=== PATIENT | female | born 1945 | race Caucasian/White ===

== ENCOUNTER 2019-03-18 15:05 | Emergency (ER) | payer MEDICARE, OTHER, SELFPAY ==
[2019-03-18 15:13] VITALS: BP 147/77; PULSE 65; RESP 18; TEMP 36.3; O2SAT 97
--- NOTE | 2019-03-18 15:34 | ECG_ITS ---
Measurements Intervals [place] Rate: 58 P: 23 TN: 164 QRS: -9 QRSD: 86 T: 16 QT: 444 QTc: 438 Interpretive Statements SINUS BRADYCARDIA BORDERLINE ECG Electronically Signed On 03-19-2019 7:54:42 [employer] by Gordon Fox D.O.
--- NOTE | 2019-03-18 15:37 | ED.ABDPAIN ---
HPI - Abdominal Pain General Chief Complaint: Abdominal Pain Stated Complaint: L SIDE PAIN/NAUSEA/PASSED OUT Time Seen by Provider: 03/18/19 15:38 Source: patient, family and RN notes reviewed Mode of arrival: ambulatory Limitations: no limitations History of Present Illness HPI narrative: 73-year-old female presents with concern for left lower abdominal pain, episode of syncope. She reports she was riding in the car approximately 15 minutes ago when her noticed that she momentarily passed out for approximately 30 seconds. Reports prior to passing out she felt nauseous, like she was going to vomit. Reports a history of diverticulitis in the left lower quadrant. Reports after arriving to [facility], she had a soft bowel movement and her abdominal pain went away. MD elicited complaint: abdominal pain Related Data Home Medications Medication Instructions Recorded Confirmed Allergy Medication 03/18/19 Calcium 600 + D(3) 03/18/19 Daily Multivitamin 03/18/19 [place]-3 03/18/19 alendronate 70 mg PO WEEKLY 03/18/19 03/18/19 aspirin [Aspir-81] 03/18/19 fluoxetine 40 mg PO DAILY 03/18/19 03/18/19 lisinopril 20 mg PO DAILY 03/18/19 03/18/19 omeprazole magnesium [Prilosec] 10 mg PO DAILY 03/18/19 03/18/19 pravastatin 20 mg PO DAILY 03/18/19 03/18/19 Allergies Allergy/AdvReac Type Severity Reaction Status Date / Time Sulfa (Sulfonamide Allergy Weakness Verified 03/18/19 15:21 Antibiotics) Review of Systems Review of Systems: Narrative: CONSTITUTIONAL: Denies malaise, chills, sweats, or fever. EYES: Denies visual changes ENT: Denies rhinorrhea, congestion, sinus pain, otalgia or sore throat. CARDIOVASCULAR: Denies chest pain, palpitations, or edema. RESPIRATORY: Denies cough or dyspnea. GASTROINTESTINAL: Reports left lower abdominal pain. Denies nausea, vomiting, diarrhea, bloody, or mucous stools. GENITOURINARY: Denies dysuria or hematuria. MUSCULOSKELETAL: Denies back pain, joint pain, or myalgia. NEUROLOGIC: Denies numbness, weakness, or headache. Reports 1 episode of syncope today All systems reviewed & are unremarkable except as noted in HPI and below PMFSH Comments At time of signature, agree with nursing past medical, surgical, social and family history. There is no relevant family history pertinent to the presenting complaint Exam Narrative: Exam Narrative: GENERAL: Well-appearing, well-nourished, and in no acute distress. HEAD: Normocephalic, atraumatic. EYES: PERRLA, conjunctivae clear, and EOMI. No nystagmus. ENT: Nares clear, turbinates pink, no rhinorrhea or epistaxis. Mucous membranes moist. TM pearly sanderson with sharp light reflex bilaterally; no tragal tenderness. Oropharynx without erythema or lesions. Tonsils not enlarged and without exudate. NECK: Supple. No lymphadenopathy. No jugular venous distension, thyromegaly, or carotid bruits. Carotids were easily palpable bilaterally. CHEST: No respiratory distress. Clear to auscultation. No bony deformities, no asymmetry. Speaks in full sentences. HEART: Regular rate and rhythm. No murmur heard. Normal peripheral pulses. ABDOMEN: Soft, mild left lower quadrant tenderness, nondistended, normal active bowel sounds, no palpable masses. EXTREMITIES: Normal range of motion. No edema. Normal strength and sensation. SKIN: Warm, dry, no rash. NEURO: Alert and oriented x3. No focal deficits. Cranial nerves II through XII grossly intact PSYCH: Normal mood and affect Course Course Emergency Course: Discussed with patient reasons to seek further evaluation in the emergency department, patient and her choose to not do that at this time. Anticipatory guidance given. Patient agrees to follow-up as directed and is aware of reasons to seek care at the emergency department. Portions of this record may have been created with voice recognition software Vital Signs Vital signs: Vital Signs Temperature 97.3 F L 03/18/19 15:13 Pulse Rate 65 03/18/19
== END 2019-03-18 16:01 | disposition left against medical advice (07) ==
PROVIDERS: Emergency Provider Nurse Practitioner
DX: R10.32 Left lower quadrant pain (principal); E78.00 Pure hypercholesterolemia, unspecified; I10 Essential (primary) hypertension; H26.9 Unspecified cataract
CPT/HCPCS: 93005; 99203; G0463